=== PATIENT | female | born 1930 | race Caucasian/White ===

== ENCOUNTER 2016-11-13 17:48 | Inpatient (IN) | payer OTHER, MEDICARE ==
[~2016-11-13] VITALS: Ht 162.6 cm; Wt 43.1 kg
--- NOTE | ~2016-11-13 | D ---
[facility] [place] [address] DISCHARGE SUMMARY Name: CAMDENYVETTEMICHAEL Room #: 460-P [facility] IN M.R.#: [id number] Admission: 11/13/16 Attend Phys: Deangelo Lainez MD Discharge: 11/18/16 Date of : 28 Report #: [id number] THIS REPORT FOR: //name// CC: Leonie Lainez DATE OF SERVICE: 11/18/2016 The patient was admitted to the hospital on 11/13/2016, discharged from the hospital on 11/18/2016. HISTORY OF PRESENT ILLNESS: The patient is an 86-year-old female with multiple medical problems, including advanced dementia, who came to the hospital with shortness of breath, and dehydration. Please refer to admission H and P for details. HOSPITALIZATION COURSE: The patient was hospitalized at [facility]. The patient was diagnosed with healthcare-associated pneumonia. She was treated with broad spectrum antibiotics, including vancomycin, and Zosyn. The patient had chest x-ray and then chest CT scan, that showed bilateral infiltrates. The patient did better on antibiotics. Her respiratory failure improved, and currently she is on supplemental oxygen by nasal cannula. The patient was noted to have right upper extremity swelling. She is diagnosed with right upper extremity DVT, so she was started on subQ Lovenox. Before the patient is discharged, she will be switched to the oral liquids. Currently, the patient's condition is acceptable, for her to be discharged from the hospital. Given the patient's advanced dementia, multiple medical problems and debility, as well as severe malnutrition, family member considered hospice care, which will be consulted while the patient is at the alf. DISCHARGE DIAGNOSES: 1. Healthcare-associated pneumonia, clinically better. 2. Upper extremity deep venous thrombosis. No pulmonary embolism on CT scan angiography of the chest. 3. Dehydration, resolved on IV fluids. 4. Advanced dementia. 5. Hypertension. 6. Severe protein calorie malnutrition. DISCHARGE MEDICATIONS: Please refer to the medication reconciliation list. FOLLOWUP PLAN: Follow up with the primary care physician in 1-2 weeks. [facility] [address] [place] [address] DISCHARGE SUMMARY Name: LENNY HANNAH Room #: 460-P [facility] IN M.R.#: [id number] Admission: 11/13/16 Attend Phys: Deangelo Lainez MD Discharge: 11/18/16 Date of : 28 Report #: [id number] DISPOSITION: The patient is discharged to the shelter facility. I spent more than 30 minutes to coordinate the patient's discharge from the hospital. <ELECTRONICALLY SIGNED> By: Irma Rushing MD 11/24/16 1246 1412 1515 Irma Rushing MD /nt
--- NOTE | ~2016-11-13 | EKG ---
[address] [place] [address] ELECTROCARDIOGRAM REPORT Name: LENNY HANNAH Room #: 460-P ADM IN M.R.#: [id number] Admission: 11/13/16 Attend Phys: Nikolay Tsai DO Discharge: Date of : 28 Report #: [id number] THIS REPORT FOR: //name// [facility] ED Test Date: 2016-11-13 Test Time: 18:25:55 Pat Name: LENNY HANNAH Department: Room: [facility] Gender: F Technical Service Specialist: Miguel Ángel EWAVER : 1930 Requested By: Abdirahman Cardoza Order Number: [id number] MD: Kristopher Alvarez Measurements Intervals [place] Rate: 117 P: 50 LA: 155 QRS: -37 QRSD: 85 T: 267 QT: 391 QTc: 546 Interpretive Statements Sinus tachycardia Left axis deviation Nonspecific ST and T wave abnormality No previous ECG available for comparison Electronically Signed On 11-14-2016 8:30:31 CDT by Kristopher Alvarez [email or web address] <ELECTRONICALLY SIGNED> By: Kristopher Alvarez MD, [facility] 11/14/16 0830 1825 24 Kristopher Alvarez MD, FACC /EPI
--- NOTE | ~2016-11-13 | EKG ---
[address] [employer] [place] [address] ELECTROCARDIOGRAM REPORT Name: LENNY HANNAH Room #: 460-P ADM IN M.R.#: [id number] Admission: 11/13/16 Attend Phys: Nikolay Tsai DO Discharge: Date of : 28 Report #: [id number] THIS REPORT FOR: //name// [facility] Test Date: 2016-11-15 Test Time: 07:38:18 Pat Name: LENNY HANNAH Department: Room: 460 Gender: F Director Of Regional Sales: antonella : 1930 Requested By: Alyssa Sepulveda Order Number: [id number] MD: Kristopher Alvarez Measurements Intervals [place] Rate: 110 P: 84 LA: 162 QRS: -2 QRSD: 80 T: 57 QT: 343 QTc: 465 Interpretive Statements Sinus tachycardia Low voltage, extremity leads Borderline repolarization abnormality Compared to ECG 11/13/2016 18:25:55 No significant change was found Electronically Signed On 11-16-2016 12:46:38 CDT by Kristopher Alvarez [email or web address] <ELECTRONICALLY SIGNED> By: Kristopher Alvarez MD, [facility] 11/16/16 1246 7 Kristopher Alvarez MD, [facility] /EPI
--- NOTE | ~2016-11-13 | HC ---
[facility] [place] [address] CONSULTATION Name: LENNY HANNAH Room #: 460-P [facility] IN M.R.#: [id number] Admission: 11/13/16 Attend Phys: Nikolay Tsai DO Discharge: Date of : 28 Report #: [id number] THIS REPORT FOR: //name// CC: Nikolay Machado DATE OF SERVICE: 11/14/2016 DATE OF SERVICE: 11/14/2016. REASON FOR CONSULTATION: Acute respiratory failure. IMPRESSION: 1. Acute respiratory failure. 2. Healthcare-associated pneumonia. 3. Deep venous thrombosis. 4. Acute renal injury. 5. Debilitation. 6. Right greater than left effusion with pneumonia and patchy infiltrate left upper lobe. 7. Probable chronic obstructive pulmonary disease. PLAN: 1. Pulmonary toilet. 2. Agree with Zosyn and vancomycin. 3. May need to tap effusion. 4. For now, we will use Lovenox. 5. BiPAP. 6. Ulcer prophylaxis, speech therapy to see. Discussed with [id number] lawn outside the rom. HISTORY OF PRESENT ILLNESS: The patient is lethargic 86-year-old was living alone and then has had several falls, is somewhat bed bound, was found to have decreased mental status. The patient is currently on BiPAP, unable to give history. PAST MEDICAL HISTORY: CURRENT MEDICATIONS: Include vancomycin, albuterol, Lovenox, Protonix, Zosyn. ALLERGIES: No known. PAST SURGICAL HISTORY: Include drainage, right hip surgical wound, 08/28/2016, 08/13/2016 had revision of previous right hip surgery to cemented right hip hemiarthroplasty with deep hardware removal, 07/28/2016 had a right greater trochanteric fracture, nonunion and open reduction and internal fixation and [facility] [address] [place] [address] CONSULTATION Name: LENNY HANNAH Room #: 460-P ADM IN M.R.#: [id number] Admission: 11/13/16 Attend Phys: Nikolay Tsai DO Discharge: Date of : 28 Report #: [id number] intramedullary device right hip. REVIEW OF SYSTEMS: Unobtainable. FAMILY HISTORY: Unobtainable. SOCIAL HISTORY: Positive tobacco, a pack a day for 70 years. Positive ETOH in the past. PHYSICAL EXAMINATION: VITAL SIGNS: T-max , pulse 120, respirations 34, blood pressure 150/80 on BiPAP. LUNGS: Coarse bilaterally. HEART: Tachycardic. ABDOMEN: Bowel sounds present. EXTREMITIES: Showed no cyanosis or significant edema. LABORATORY DATA: Venous Doppler showed DVT on right. CT PE protocol showed emphysematous changes, right greater than left effusion, bibasilar pneumonia. White cell count 20.8, bands 2, D-dimer . BUN 20, creatinine 1.2, potassium 3.4. We will follow closely with you. CT head showed moderate to severe cerebral atrophy. <ELECTRONICALLY SIGNED> By: Alyssa Sepulveda MD 11/16/16 2147 1923 1349 Alyssa Sepulveda MD /nt
[~2016-11-13 17:48] MED LIST: ARICEPT 5 MG TAB5 MG PO; BISACODYL SUPP10 MG RECTAL; BP MEDS; COLACE100 MG PO; ENOXAPARIN30 MG/0.1 SUBQ; HTN MED; HYDROCODONE-AP1 EAC6 PO; NICOTINE TRANSD14 M1 TRANSDERM; NORCO 5-325 TA1 EACH PO; ONDANSETRON HCL4 M2 PO; PAIN & FEVER325 MG PO; PROTONIX40 M1 PO; ROCEPHIN 11 GM/1001 IVPB; VANCOMYCIN1 GM/2502 IVPB; VASOTEC 2.5MG2.5 M1 PO; VERAPAMIL ER100 MG PO; VERAPAMIL ER180 MG PO; VITAMINC500 PO; ZANAFLEX4 MG PO
[2016-11-13 17:50] VITALS: BP 149/91
[2016-11-13 18:34] LABS: HEMATOCRIT 33.8 % (37.0-47.0); HEMOGLOBIN 11.5 gm/dL (12.0-15.0); MCH 31.1 pg (26.0-34.0); MCHC 34.1 g/dL (28.0-37.0); MCV 91.3 fL (80.0-100.0); PLATELET COUNT 642 thou/uL (150-400); RDW 14.4 % (10.5-14.5); WBC 22.3 thou/uL (4.0-11.0)
[2016-11-13 18:35] LABS: MANUAL DIFF YES
[2016-11-13 18:41] LABS: ANION GAP 11 mmol/L (7-16); BUN 20 mg/dL (7-18); CALCIUM 8.8 mg/dL (8.5-10.1); CHLORIDE 94 mmol/L (98-107); CO2 25 mmol/L (21-32); CREATININE 1.2 mg/dL (0.6-1.0); GLUCOSE 167 mg/dL (74-106); POTASSIUM 4.1 mmol/L (3.5-5.1); SODIUM 130 mmol/L (136-145)
[2016-11-13 18:45] LABS: URINE BILIRUBIN NEGATIVE (Negative); URINE BLOOD NEGATIVE (Negative); URINE COLOR YELLOW; URINE GLUCOSE-RANDOM* NEGATIVE (Negative); URINE KETONES NEGATIVE (Negative); URINE LEUKOCYTES-REFLEX NEGATIVE (Negative); URINE PROTEIN (DIPSTICK) NEGATIVE (Negative); URINE SPECIFIC GRAVITY 1.015 (1.003-1.035); URINE UROBILINOGEN 0.2 E.U./dl (0.2-1.0)
[2016-11-13 18:48] LABS: ALBUMIN 2.5 g/dL (3.4-5.0); ALKALINE PHOSPHATASE 111 U/L (46-116); MAGNESIUM 1.6 mg/dL (1.8-2.4); SGOT 22 U/L (15-37); SGPT 12 U/L (30-65); TOTAL BILIRUBIN 0.6 mg/dL (<0.1-1.0); TOTAL PROTEIN 8.4 g/dL (6.4-8.2); TROPONIN-I < 0.04 ng/mL (<0.04-0.07)
[2016-11-13 18:53] LABS: ABG SAMPLE TYPE ARTERIAL; HCO3 26.1 mmol/L (22.0-26.0); LACTATE 2.16 mmol/L (0.5-2.0); O2(CT) 15.6 mL/dL (15.0-23.0); PCO2 34.8 mmHg (35.0-45.0); PO2 59.9 mmHg (80.0-100.0); STICK SITE R.BRACHIAL; pH 7.493 (7.360-7.450); tCO2 27.2 mmol/L (24.0-30.0)
[2016-11-13 18:55] LABS: ABSOLUTE NEUTROPHILS 20.3 thou/uL (1.4-8.2); TOTAL CELL COUNT 100
[2016-11-13 20:50] VITALS: BP 154/90
[2016-11-14 01:06] VITALS: BP 173/80
[2016-11-14 04:09] VITALS: BP 150/81
[2016-11-14 05:57] LABS: HEMATOCRIT 33.8 % (37.0-47.0); HEMOGLOBIN 11.3 gm/dL (12.0-15.0); MCH 31.2 pg (26.0-34.0); MCHC 33.6 g/dL (28.0-37.0); MCV 93.1 fL (80.0-100.0); PLATELET COUNT 605 thou/uL (150-400); RBC 3.63 mil/uL (4.20-5.00); RDW 14.4 % (10.5-14.5); WBC 20.8 thou/uL (4.0-11.0)
[2016-11-14 06:00] LABS: MANUAL DIFF YES
[2016-11-14 06:07] LABS: CALCIUM 8.7 mg/dL (8.5-10.1); CREATININE 1.2 mg/dL (0.6-1.0); MAGNESIUM 2.3 mg/dL (1.8-2.4); POTASSIUM 3.4 mmol/L (3.5-5.1)
[2016-11-14 07:28] VITALS: BP 147/82
[2016-11-14 08:51] LABS: ABSOLUTE NEUTROPHILS 20.2 thou/uL (1.4-8.2); ANISOCYTOSIS SLIGHT; TOTAL CELL COUNT 100
[2016-11-14 11:46] VITALS: BP 150/80
[2016-11-14 15:10] VITALS: BP 142/82
[2016-11-14 20:37] VITALS: BP 131/93
[2016-11-15] VITALS (7 sets, daily range): BP systolic 119–152; BP diastolic 66–104
[2016-11-15 05:00] LABS: HEMATOCRIT 23.9 % (37.0-47.0); MCH 31.9 pg (26.0-34.0); MCHC 34.2 g/dL (28.0-37.0); MCV 93.4 fL (80.0-100.0); RBC 2.55 mil/uL (4.20-5.00); RDW 14.3 % (10.5-14.5); WBC 15.3 thou/uL (4.0-11.0)
[2016-11-15 05:04] LABS: ALBUMIN 1.7 g/dL (3.4-5.0); CALCIUM 7.7 mg/dL (8.5-10.1); CREATININE 0.7 mg/dL (0.6-1.0); TOTAL BILIRUBIN 0.3 mg/dL (<0.1-1.0); TOTAL PROTEIN 6.2 g/dL (6.4-8.2); TROPONIN-I 0.46 ng/mL (<0.04-0.07)
[2016-11-15 05:10] LABS: HEMOGLOBIN 8.2 gm/dL (12.0-15.0); PLATELET COUNT 454 thou/uL (150-400)
[2016-11-15 05:11] LABS: MANUAL DIFF YES
[2016-11-15 05:19] LABS: POTASSIUM 2.7 mmol/L (3.5-5.1)
[2016-11-15 05:35] LABS: ABG SAMPLE TYPE ARTERIAL; BE(vivo) -1.6 mmol/L (-2 to +3); HCO3 22.3 mmol/L (22.0-26.0); LACTATE 1.04 mmol/L (0.5-2.0); O2(CT) 13.5 mL/dL (15.0-23.0); PCO2 34.6 mmHg (35.0-45.0); PO2 83.2 mmHg (80.0-100.0); STICK SITE R.RADIAL; pH 7.428 (7.360-7.450); sO2 96.5 % (92.0-98.0); tCO2 23.4 mmol/L (24.0-30.0)
[2016-11-15 05:36] LABS: Pressure Support 4 cm H20
[2016-11-15 05:37] LABS: MAGNESIUM 1.7 mg/dL (1.8-2.4)
[2016-11-15 07:33] LABS: ABSOLUTE NEUTROPHILS 13.2 thou/uL (1.4-8.2); TOTAL CELL COUNT 100
[2016-11-16 03:30] VITALS: BP 126/65
[2016-11-16 05:04] LABS: HEMATOCRIT 25.1 % (37.0-47.0); HEMOGLOBIN 8.3 gm/dL (12.0-15.0); MCH 30.7 pg (26.0-34.0); MCV 93.2 fL (80.0-100.0); PLATELET COUNT 472 thou/uL (150-400); RBC 2.69 mil/uL (4.20-5.00); RDW 14.3 % (10.5-14.5); WBC 12.5 thou/uL (4.0-11.0)
[2016-11-16 05:15] LABS: MANUAL DIFF YES
[2016-11-16 05:17] LABS: CALCIUM 8.2 mg/dL (8.5-10.1); CREATININE 0.7 mg/dL (0.6-1.0)
[2016-11-16 05:35] LABS: POTASSIUM 2.7 mmol/L (3.5-5.1)
[2016-11-16 05:41] LABS: ABSOLUTE NEUTROPHILS 10.6 thou/uL (1.4-8.2); TOTAL CELL COUNT 100
[2016-11-16 08:30] VITALS: BP 129/93
[2016-11-16 11:16] VITALS: BP 127/86
[2016-11-16 15:59] VITALS: BP 153/89
[2016-11-16 19:15] VITALS: BP 120/80
[2016-11-17 05:27] LABS: CALCIUM 7.9 mg/dL (8.5-10.1); CREATININE 0.7 mg/dL (0.6-1.0); POTASSIUM 3.4 mmol/L (3.5-5.1)
[2016-11-17 05:29] VITALS: BP 146/95
[2016-11-17 05:36] LABS: HEMATOCRIT 26.4 % (37.0-47.0); MCH 31.6 pg (26.0-34.0); MCHC 34.2 g/dL (28.0-37.0); MCV 92.5 fL (80.0-100.0); RBC 2.85 mil/uL (4.20-5.00); RDW 14.2 % (10.5-14.5); WBC 10.7 thou/uL (4.0-11.0)
[2016-11-17 07:10] VITALS: BP 136/76
[2016-11-17 11:18] VITALS: BP 139/94
[2016-11-17 16:33] VITALS: BP 139/84
[2016-11-17 20:06] VITALS: BP 132/95
[2016-11-18 03:00] VITALS: BP 140/114
[2016-11-18 04:50] LABS: ABSOLUTE NEUTROPHILS 6.7 thou/uL (1.4-8.2); HEMATOCRIT 27.4 % (37.0-47.0); HEMOGLOBIN 9.2 gm/dL (12.0-15.0); LYMPHOCYTES 10.5 % (24.0-44.0); MCH 31.2 pg (26.0-34.0); MCHC 33.5 g/dL (28.0-37.0); MCV 93.2 fL (80.0-100.0); PLATELET COUNT 518 thou/uL (150-400); POLYS 77.5 % (36.0-66.0); RBC 2.94 mil/uL (4.20-5.00); RDW 14.3 % (10.5-14.5); WBC 8.6 thou/uL (4.0-11.0)
[2016-11-18 04:58] LABS: MANUAL DIFF NO
[2016-11-18 05:09] LABS: CREATININE 0.7 mg/dL (0.6-1.0); POTASSIUM 3.6 mmol/L (3.5-5.1)
[2016-11-18 07:31] VITALS: BP 145/96
[2016-11-18 10:58] VITALS: BP 140/88
[2016-11-18] MEDS ORDERED: NORCO 5-325 TA1 EACH PO (14:16)
[2016-11-18] MEDS ORDERED: DUONEB 2.5-0.5 M3 ML INH (14:16)
[2016-11-18] MEDS ORDERED: AUGMENTIN 875875 MG PO (14:16)
[2016-11-18] MEDS ORDERED: DOXYCYCLINE 10100 MG PO (14:16)
[2016-11-18] MEDS ORDERED: ELIQUIS2.5 MG PO (14:20)
== END 2016-11-18 18:40 | DRG 871 ==
LOC: ER 17:48 → 4W 19:21 → EROBS 19:21 → 4W 19:21
PROVIDERS: Emergency Medicine; Family Medicine; Internal Medicine Endocrinology, Diabetes & Metabolism; Internal Medicine Pulmonary Disease; Nurse Practitioner
PROC: 5A09457 Assistance with Respiratory Ventilation, 24-96 Consecutive Hours, Continuous Positive Airway Pressure (ICD-10-PCS; principal; 2016-11-18)
DX: A41.9 Sepsis, unspecified organism (principal); J96.01 Acute respiratory failure with hypoxia; J18.9 Pneumonia, unspecified organism; E43 Unspecified severe protein-calorie malnutrition; N17.9 Acute kidney failure, unspecified; I82.621 Acute embolism and thrombosis of deep veins of right upper extremity; E87.1 Hypo-osmolality and hyponatremia; I82.411 Acute embolism and thrombosis of right femoral vein; Z68.1 Body mass index [BMI] 19.9 or less, adult; J44.0 Chronic obstructive pulmonary disease with (acute) lower respiratory infection; I10 Essential (primary) hypertension; E86.0 Dehydration; F03.90 Unspecified dementia, unspecified severity, without behavioral disturbance, psychotic disturbance, mood disturbance, and anxiety; E83.42 Hypomagnesemia; Z66 Do not resuscitate; Y95 Nosocomial condition; E87.6 Hypokalemia; Z87.891 Personal history of nicotine dependence; Z99.3 Dependence on wheelchair; Z99.81 Dependence on supplemental oxygen
CPT/HCPCS: 10045